=== PATIENT | female | born 1980 | race Caucasian/White ===

== ENCOUNTER 2016-11-11 21:19 | Emergency (ER) | payer OTHER ==
[~2016-11-11] VITALS: Ht 167.6 cm; Wt 141.0 kg
[~2016-11-11 21:19] MED LIST: AMITRIPTYLINE H25 MG PO; ARIXTRA10 MG/0.8 SC; ATIVAN0.5 MG PO; BENADRYL25 MG PO; BENADRYL50 MG PO; BRINTELLIX10 MG PO; COUMADIN6 MG PO; DESYREL100 MG PO; HYDROCODON-ACE1 EAC7 PO; IBUPROFEN800 MG PO; IMITREX100 MG PO; IMITREX6 MG/0.52 SC; INDERAL10 MG PO; LAMICTAL100 MG PO; LAMICTAL25 MG PO; LAMOTRIGINE150 MG PO; LEXAPRO20 MG PO; LOVENOX150 MG/1 M SC; MOTRIN600 MG PO; NAPROSYN500 MG PO; NOHOMEMEDS; PEPCID20 MG PO; PERCOCET 5/31 TABLET PO; PRADAXA150 MG PO; PREDNISONE10 M1 PO; PREDNISONE20 MG PO; PRILOSEC40 MG PO; PROBIOTIC1 EAC2 PO; SPRINTEC1 EACH PO; SUMATRIPTAN SU100 MG PO; VENTOLIN HFA18 GM IH; VICODIN 5-3001 EACH PO; WELLBUTRIN SR150 MG PO; XANAX0.5 MG PO; XARELTO20 MG PO
[2016-11-11 22:19] LABS: CHLORIDE 108 mEq/L (99-109); POTASSIUM 3.9 mEq/L (3.7-5.4); SODIUM 141 mEq/L (136-147)
[2016-11-11 22:19] LABS: ADD MIUA? YES; BILIRUBIN NEGATIVE; BLOOD NEGATIVE; COLOR YELLOW ((YELLOW)); GLUCOSE (STRIP) NEGATIVE; KETONES 20; LEUKOCYTES NEGATIVE; NITRITE NEGATIVE; PROTEIN (STRIP) 30; SPECIFIC GRAVITY 1.026 (1.000-1.030); UROBILINOGEN 0.2 MG/DL (0.2-1.0)
[2016-11-11 22:21] LABS: GLUCOSE 95 mg/dL (70-99)
[2016-11-11 22:22] LABS: ANION GAP 10 MEQ/L (2-14)
[2016-11-11 22:23] LABS: BACTERIA RARE /HPF; EPITHELIAL CELLS 1+ /HPF; MUCUS 1+ /LPF; RED BLOOD CELLS 0-5 /HPF (0-5); WHITE BLOOD CELLS 0-5 /HPF (0-5)
[2016-11-11 22:25] LABS: GFR ESTIMATE (CALCULATED) > 59 mL/min/
[2016-11-11 22:26] LABS: UREA NITROGEN (BUN) 10 mg/dL (9-23)
[2016-11-11] MEDS ORDERED: ZOFRAN ODT8 MG PO (22:41)
[2016-11-11 23:01] VITALS: BP 115/84
== END 2016-11-11 23:02 | disposition home or self-care (01) ==
LOC: EME 21:19
PROVIDERS: Physician Assistant
DX: R11.0 Nausea (principal); R10.9 Unspecified abdominal pain; Z86.718 Personal history of other venous thrombosis and embolism; Z88.6 Allergy status to analgesic agent; Z88.8 Allergy status to other drugs, medicaments and biological substances; Z87.891 Personal history of nicotine dependence
CPT/HCPCS: 80048; 81003; 99281; 99284

== ENCOUNTER 2017-07-26 09:10 | Day surgery (SDC) | payer OTHER ==
[~2017-07-26] VITALS: Ht 170.2 cm; Wt 142.4 kg
[~2017-07-26 09:10] MED LIST changes: +ACID REDUCER20 MG PO; +ALL DAY ALLERGY10 M3 PO; +ANTI-DIARRHEA2 MG PO; -ARIXTRA10 MG/0.8 SC; +ARIXTRA2.5 MG/0.5 SC; +BENTYL10 MG PO; +BUTALB-ASPIRIN1 EACH PO; +INDERAL XL80 MG PO; +LAMICTAL200 MG PO; +PHENTERMINE H37.5 MG PO; +TESSALON200 MG PO; +TOPAMAX25 MG PO; +ZOFRAN ODT8 MG PO; +ZOFRAN4 MG PO
[2017-07-31] MEDS ORDERED: LORCET 5-325 M1 EACH PO (12:38)
[2017-07-31] MEDS ORDERED: FLEXERIL10 MG PO (12:39)
[2017-07-31] MEDS ORDERED: LUPRON DEPOT22.5 MG IM (12:50)
== END 2017-07-26 11:25 | disposition home or self-care (01) ==
LOC: PAIN 09:10 → CATH 09:45 → SDC 09:45 → PAIN 10:45
DX: M47.816 Spondylosis without myelopathy or radiculopathy, lumbar region (principal); M54.5 Low back pain; G89.29 Other chronic pain; M51.36 Other intervertebral disc degeneration, lumbar region; M22.41 Chondromalacia patellae, right knee; F41.8 Other specified anxiety disorders; Z79.01 Long term (current) use of anticoagulants; Z79.891 Long term (current) use of opiate analgesic; Z87.891 Personal history of nicotine dependence; Z86.718 Personal history of other venous thrombosis and embolism; Z86.711 Personal history of pulmonary embolism
CPT/HCPCS: J1030; J2250; S0020

== ENCOUNTER 2017-08-13 10:16 | Day surgery (SDC) | payer OTHER ==
[~2017-08-13] VITALS: Ht 170.2 cm; Wt 140.6 kg
[~2017-08-13 10:16] MED LIST changes: +FLEXERIL10 MG PO; +LORCET 5-325 M1 EACH PO; +LUPRON DEPOT22.5 MG IM
== END 2017-08-13 11:39 | disposition home or self-care (01) ==
LOC: PAIN 10:16
DX: M47.816 Spondylosis without myelopathy or radiculopathy, lumbar region (principal); M51.36 Other intervertebral disc degeneration, lumbar region; M46.1 Sacroiliitis, not elsewhere classified; F41.9 Anxiety disorder, unspecified; K21.9 Gastro-esophageal reflux disease without esophagitis; E66.01 Morbid (severe) obesity due to excess calories; Z68.42 Body mass index [BMI] 45.0-49.9, adult; Z79.891 Long term (current) use of opiate analgesic; Z86.718 Personal history of other venous thrombosis and embolism; Z87.891 Personal history of nicotine dependence
CPT/HCPCS: J1030; J2250; J3010; S0020